=== PATIENT | male | born 1975 | race Caucasian/White ===

== ENCOUNTER 2016-07-27 19:41 | Emergency (ER) | payer MEDICARE, MEDICAID ==
[2016-07-27] MEDS ORDERED: Aspirin Low Dose CHEW TAB* 81 MG PO ONE (20:15)
[2016-07-27 20:32] LABS: Hematocrit 46 % (42-52); Hemoglobin 15.6 g/dl (14.0-18.0); Mean Corpuscular HGB Conc 34 g/dl (31-36); Mean Corpuscular Hemoglobin 28 pg (27-31); Mean Corpuscular Volume 82 fL (80-94); Mean Platelet Volume 8 um3 (7.4-10.4); Red Blood Count 5.64 10^6/ul (4.0-5.4); Red Cell Distribution Width 14 % (10.5-15); White Blood Count 8.8 10^3/ul (3.5-10.8)
[2016-07-27 20:44] LABS: Albumin 4.2 g/dL (3.2-5.2); BUN/Creatinine Ratio 13.3 (8-20); Calcium 9.5 mg/dL (8.6-10.3); EGFR African American 149.1 (>60); EGFR Non-African American 115.9 (>60); Potassium 3.9 mmol/L (3.5-5.0); Total Bilirubin 0.4 mg/dL (0.2-1.0); Total Protein 7.2 g/dL (6.4-8.9)
--- NOTE | 2016-07-27 20:49 | RAD ---
HISTORY: Right-sided back pain COMPARISONS: December 12, 2015 VIEWS: 2: Frontal dual-energy and lateral views of the chest. FINDINGS: CARDIOMEDIASTINAL SILHOUETTE: The cardiomediastinal silhouette is normal. SHEREE: The sheree are normal. PLEURA: The costophrenic angles are sharp. No pleural abnormalities are noted. LUNG PARENCHYMA: The lung volumes are low. The lungs are clear. ABDOMEN: The upper abdomen is clear. There is no subphrenic gas. BONES AND SOFT TISSUES: No bone or soft tissue abnormalities are noted. OTHER: None. IMPRESSION: LOW LUNG VOLUMES. NO ACTIVE CARDIOPULMONARY DISEASE.
[2016-07-27] MEDS: Ketorolac INJ* 30 MG/ML 1 ML VIAL IV ONE ×2 (21:11→23:12)
[2016-07-27] MEDS ORDERED: HYDROcodone/ACETAMIN 5-325 MG* 1 TAB PO ONE (21:36)
[2016-07-28] MEDS ORDERED: Ibuprofen TAB* 200 MG PO ONE (00:04)
[2016-07-28] MEDS ORDERED: Ibuprofen TAB* 600 MG ONE (00:06)
[2016-07-28 00:34] VITALS: BP 133/71
--- NOTE | 2016-07-31 12:34 | ED ---
Dana Gonzalez Matthew, scribed for Jeevan Montaño MD on 07/27/16 at 2019 . HPI Chest Pain - HPI Summary HPI Summary: A 41 y/o male presents to the ED by private car with sudden chest pain since 2 hours ago. The pain is rated 8/10 in severity and described as sharp. The pain started as right flank and right para spinal lower back pain, which has radiated into his chest. The pain is unaffected by movement and deep breaths. The pain started while the patient was sitting watching TV. Associated symptoms include SOB. The patient has had these symptoms before, which improved after fluids and NTG. He also states that he recently had a CT of his right kidney, because of a kidney mass. - History of Current Complaint Chief Complaint: EDChestPainROMI Time Seen by Provider: 07/27/16 19:51 Hx Obtained From: Patient Onset/Duration: Started Hours Ago, Atraumatic, Still Present Time of Onset: 18:00 Timing: Constant Initial Severity: Moderate Current Severity: Moderate Pain Intensity: 8 Pain Scale Used: 0-10 Numeric Character: Sharp/Stabbing Aggravating Factor(s): Nothing Alleviating Factor(s): Nothing Associated Signs and Symptoms: Positive: Chest Pain, Shortness of Breath, Back Pain - Right para spinal, Other: - Right Flank Pain - Additional Pertinent History Primary Care Physician: KARLA - Allergy/Home Medications Allergies/Adverse Reactions: Allergies Allergy/AdvReac Type Severity Reaction Status Date / Time No Known Allergies Allergy Verified 07/25/16 13:29 PMH/Surg Hx/FS Hx/Imm Hx Endocrine/Hematology History: Denies: Hx Diabetes, Hx Thyroid Disease Cardiovascular History: Denies: Hx Hypertension, Hx Pacemaker/ICD Respiratory History: Denies: Hx Asthma, Hx Chronic Obstructive Pulmonary Disease (COPD) GI History: Reports: Hx Gall Bladder Disease - removed "a couple of years ago Denies: Hx Ulcer History: Denies: Hx Renal Disease Musculoskeletal History: Reports: Hx Scoliosis Neurological History: Denies: Hx Dementia, Hx Seizures Psychiatric History: Reports: Hx Anxiety, Hx Attention Deficit Hyperactivity Disorder, Hx Depression, Hx Post Traumatic Stress Disorder, Hx Inpatient Treatment, Hx Community Mental Health Tx, Hx Bipolar Disorder, Hx of Violent Episodes Against Others, Other Psychiatric Issues/Disorders Denies: Hx Eating Disorder, Hx Panic Disorder, Hx Schizophrenia, Hx Suicide Attempt, Hx Substance Abuse - Surgical History Surgery Procedure, Year, and Place: CHOLECYSTECTOMY. T & A Infectious Disease History: No Infectious Disease History: Denies: Hx Clostridium Difficile, Hx Hepatitis, Hx Human Immunodeficiency Virus (HIV), Hx of Known/Suspected MRSA, Hx Shingles, Hx Tuberculosis, Hx Known/ Suspected VRE, Hx Known/Suspected VRSA, Traveled Outside the [place] in Last 30 Days - Family History Known Family History: Positive: Cardiac Disease - Social History Alcohol Use: None Alcohol Amount: once per year Hx Substance Use: No Substance Use Type: Reports: None Hx Tobacco Use: Yes Smoking Status (MU): Former Smoker Type: Cigarettes Have You Smoked in the Last Year: No Review of Systems Constitutional: Negative Eyes: Negative ENT: Negative Positive: Chest Pain Positive: Shortness Of Breath Positive: Abdominal Pain - right flank pain Genitourinary: Negative Positive: Myalgia - right para spinal back pain Skin: Negative Neurological: Negative Psychological: Normal All Other Systems Reviewed And Are Negative: Yes Physical Exam Triage Information Reviewed: Yes Vital Signs On Initial Exam: Initial Vitals Temp Pulse Resp BP Pulse Ox 98.4 F 84 16 148/82 97 07/27/16 19:44 07/27/16 19:44 07/27/16 19:44 07/27/16 19:44 07/27/16 19:44 Vital Signs Reviewed: Yes Appearance: Positive: Well-Appearing, No Pain Distress, Obese Skin: Positive: Warm, Skin Color Reflects Adequate Perfusion, Dry Head/Face: Positive: Normal Head/Face Inspection Eyes: Positive: Normal ENT: Positive: Normal ENT inspection Neck: Positive: Supple, Nontender Respiratory/Lung Sounds: Positive: Clear to Auscultation, Breath Sounds Present Cardiovascular: Positive: RRR Abdomen Description: Positive: Nontender, Soft Bowel Sounds: Positive: Present Musculoskeletal: Positive: Other - right lumbar para spinal tenderness Neurological: Positive: Normal, Alert, Oriented to Person Place, Time Psychiatric: Positive: Normal, Affect/Mood Appropriate Diagnostics - Vital Signs Vital Signs Temp Pulse Resp BP Pulse Ox 07/27/16 19:44 98.4 F 84 16 148/82 97 - Laboratory Lab Results: Lab Results 07/27/16 07/27/16 07/27/16 Range/Units 20:00 20:00 20:00 WBC 8.8 (3.5-10.8) 10^3/ul RBC 5.64 H (4.0-5.4) 10^6/ul Hgb 15.6 (14.0-18.0) g/dl Hct 46 (42-52) % MCV 82 (80-94) fL MCH 28 (27-31) pg MCHC 34 (31-36) g/dl RDW 14 (10.5-15) % Plt Count 233 (150-450) 10^3/ul MPV 8 (7.4-10.4) um3 Neut % (Auto) 54.4 (38-83) % Lymph % (Auto) 34.0 (25-47) % [place] % (Auto) 9.8 H (1-9) % Eos % (Auto) 1.2 (0-6) % Baso % (Auto) 0.6 (0-2) % Absolute Neuts (auto) 4.8 (1.5-7.7) 10^3/ul Absolute Lymphs (auto) 3.0 (1.0-4.8) 10^3/ul Absolute Monos (auto) 0.9 H (0-0.8) 10^3/ul Absolute Eos (auto) 0.1 (0-0.6) 10^3/ul Absolute Basos (auto) 0.1 (0-0.2) 10^3/ul Absolute Nucleated RBC 0.02 10^3/ul Nucleated RBC % 0.2 D-Dimer, Quantitative < 200 (Less Than 230) ng/mL Sodium 129 L (133-145) mmol/L Potassium 3.9 (3.5-5.0) mmol/L Chloride 111 (101-111) mmol/L Carbon Dioxide 27 (22-32) mmol/L Anion Gap -9 L (2-11) mmol/L BUN 10 (6-24) mg/dL Creatinine 0.75 (0.67-1.17) mg/dL Est GFR ( Amer) 149.1 (>60) Est GFR (Non-Af Amer) 115.9 (>60) BUN/Creatinine Ratio 13.3 (8-20) Glucose 122 H (70-100) mg/dL Lactic Acid (0.5-2.0) mmol/L Calcium 9.5 (8.6-10.3) mg/dL Total Bilirubin 0.40 (0.2-1.0) mg/dL AST 24 (13-39) U/L ALT 37 (7-52) U/L Alkaline Phosphatase 55 (34-104) U/L Troponin I 0.00 (<0.04) ng/mL Total Protein 7.2 (6.4-8.9) g/dL Albumin 4.2 (3.2-5.2) g/dL Globulin 3.0 (2-4) g/dL Albumin/Globulin Ratio 1.4 (1-3) 07/27/16 Range/Units 20:00 WBC (3.5-10.8) 10^3/ul RBC (4.0-5.4) 10^6/ul Hgb (14.0-18.0) g/dl Hct (42-52) % MCV (80-94) fL MCH (27-31) pg MCHC (31-36) g/dl RDW (10.5-15) % Plt Count (150-450) 10^3/ul MPV (7.4-10.4) um3 Neut % (Auto) (38-83) % Lymph % (Auto) (25-47) % [place] % (Auto) (1-9) % Eos % (Auto) (0-6) % Baso % (Auto) (0-2) % Absolute Neuts (auto) (1.5-7.7) 10^3/ul Absolute Lymphs (auto) (1.0-4.8) 10^3/ul Absolute Monos (auto) (0-0.8) 10^3/ul Absolute Eos (auto) (0-0.6) 10^3/ul Absolute Basos (auto) (0-0.2) 10^3/ul Absolute Nucleated RBC 10^3/ul Nucleated RBC % D-Dimer, Quantitative (Less Than 230) ng/mL Sodium (133-145) mmol/L Potassium (3.5-5.0) mmol/L Chloride (101-111) mmol/L Carbon Dioxide (22-32) mmol/L Anion Gap (2-11) mmol/L BUN (6-24) mg/dL Creatinine (0.67-1.17) mg/dL Est GFR ( Amer) (>60) Est GFR (Non-Af Amer) (>60) BUN/Creatinine Ratio (8-20) Glucose (70-100) mg/dL Lactic Acid 1.4 (0.5-2.0) mmol/L Calcium (8.6-10.3) mg/dL Total Bilirubin (0.2-1.0) mg/dL AST (13-39) U/L ALT (7-52) U/L Alkaline Phosphatase (34-104) U/L Troponin I (<0.04) ng/mL Total Protein (6.4-8.9) g/dL Albumin (3.2-5.2) g/dL Globulin (2-4) g/dL Albumin/Globulin Ratio (1-3) Result Diagrams: 07/27/16 20:00 07/27/16 20:00 Lab Statement: Any lab studies that have been ordered have been reviewed, and results considered in the medical decision making process. - Radiology CXR Xray Interpretation: No Acute Changes - IMPRESSION: LOW LUNG VOLUMES. NO ACTIVE CARDIOPULMONARY DISEASE. Radiology Interpretation Completed By: Radiologist - EKG 19:52 Cardiac Rate: NL - 80 bpm EKG Rhythm: Sinus Rhythm EKG Interpretation: Baseline [facility] Chest Pain Course/Dx - Course Assessment/Plan: A 41 y/o male presents to the ED by private car with chest pain since 18:00. EKG shows NSR at 80 bpm. CXR shows no active cardiopulmonary disease. Labs were reviewed and troponin was 0.00. The patient will be discharged home and follow-up with his PCP for further management. - Diagnoses Provider Diagnoses: Chest pain Discharge - Discharge Plan Condition: Stable Disposition: HOME Patient Education Materials: Chest Pain (ED) Referrals: Karla Patterson MD [Primary Care Provider] - 2 Days Additional Instructions: Please follow-up with your primary care physician in two days. The documentation as recorded by the Dana rincon Matthew accurately reflects the service I personally performed and the decisions made by , Jeevan Montaño MD.
== END 2016-07-28 00:40 | disposition home or self-care (01) ==
LOC: ED 19:41
DX: R07.9 Chest pain, unspecified (principal); Z87.891 Personal history of nicotine dependence
CPT/HCPCS: 36415; 71020; 80053; 83605; 84484; 85025; 85379; 93005; 99283; A9270-GY; J1885

== ENCOUNTER 2016-08-24 19:31 | Emergency (ER) | payer MEDICARE, MEDICAID ==
[2016-08-24 19:57] VITALS: BP 155/83
== END 2016-08-24 20:32 | disposition left against medical advice (07) ==
LOC: ED 19:31
DX: R10.84 Generalized abdominal pain (principal); Z53.21 Procedure and treatment not carried out due to patient leaving prior to being seen by health care provider
CPT/HCPCS: 99281

== ENCOUNTER 2016-12-06 20:19 | Emergency (ER) | payer MEDICARE, MEDICAID ==
--- NOTE | 2016-12-06 21:57 | RAD ---
Indication: Chest pain, shortness of breath, pneumonia, CHF. 2 views of the chest including dual energy PA views demonstrates elevated right hemidiaphragm. Lung herrera demonstrate no pleural fluid, pneumonia or pneumothorax. IMPRESSION: No active cardiopulmonary disease is noted.
[2016-12-06 22:26] VITALS: BP 148/96
--- NOTE | 2016-12-06 23:16 | ED ---
HPI Chest Pain - History of Current Complaint Chief Complaint: EDChestPainROMI Time Seen by Provider: 12/06/16 21:13 Pain Intensity: 2 Pain Scale Used: 0-10 Numeric - Additional Pertinent History Primary Care Physician: KARLA - Allergy/Home Medications Allergies/Adverse Reactions: Allergies Allergy/AdvReac Type Severity Reaction Status Date / Time No Known Allergies Allergy Verified 07/25/16 13:29 PMH/Surg Hx/FS Hx/Imm Hx Endocrine/Hematology History: Denies: Hx Diabetes, Hx Thyroid Disease Cardiovascular History: Denies: Hx Hypertension, Hx Pacemaker/ICD Respiratory History: Denies: Hx Asthma, Hx Chronic Obstructive Pulmonary Disease (COPD) GI History: Reports: Hx Gall Bladder Disease - removed "a couple of years ago Denies: Hx Ulcer History: Denies: Hx Renal Disease Musculoskeletal History: Reports: Hx Scoliosis Neurological History: Denies: Hx Dementia, Hx Seizures Psychiatric History: Reports: Hx Anxiety, Hx Attention Deficit Hyperactivity Disorder, Hx Depression, Hx Post Traumatic Stress Disorder, Hx Inpatient Treatment, Hx Community Mental Health Tx, Hx Bipolar Disorder, Hx of Violent Episodes Against Others, Other Psychiatric Issues/Disorders Denies: Hx Eating Disorder, Hx Panic Disorder, Hx Schizophrenia, Hx Suicide Attempt, Hx Substance Abuse - Surgical History Surgery Procedure, Year, and Place: CHOLECYSTECTOMY. T & A Infectious Disease History: No Infectious Disease History: Denies: Hx Clostridium Difficile, Hx Hepatitis, Hx Human Immunodeficiency Virus (HIV), Hx of Known/Suspected MRSA, Hx Shingles, Hx Tuberculosis, Hx Known/ Suspected VRE, Hx Known/Suspected VRSA, Traveled Outside the [place] in Last 30 Days - Family History Known Family History: Positive: Cardiac Disease - Social History Alcohol Use: None Alcohol Amount: once per year Hx Substance Use: No Substance Use Type: Reports: None Hx Tobacco Use: Yes Smoking Status (MU): Former Smoker Type: Cigarettes Have You Smoked in the Last Year: No Physical Exam Vital Signs On Initial Exam: Initial Vitals BP 134/95 12/06/16 20:40 - [place] Coma Scale Coma Scale Total: 15 Diagnostics - Vital Signs Vital Signs Temp Pulse Resp BP Pulse Ox 12/06/16 22:25 97 F 73 16 148/96 12/06/16 22:24 77 23 148/96 96 12/06/16 22:00 86 21 95 12/06/16 21:00 88 21 133/84 96 12/06/16 20:41 98.6 F 77 12 134/95 96 12/06/16 20:40 134/95 - Laboratory Lab Statement: Any lab studies that have been ordered have been reviewed, and results considered in the medical decision making process. Discharge - Discharge Plan Condition: Stable Disposition: AGAINST MEDICAL ADVICE Patient Education Materials: Chest Pain (ED) Referrals: Karla Patterson MD [Primary Care Provider] - Additional Instructions: Return to the emergency department if symptoms worsen.
== END 2016-12-06 22:26 | disposition left against medical advice (07) ==
LOC: ED 20:19
DX: R07.9 Chest pain, unspecified (principal); Z87.891 Personal history of nicotine dependence; Z53.21 Procedure and treatment not carried out due to patient leaving prior to being seen by health care provider
CPT/HCPCS: 71020; 93005; 99282

== ENCOUNTER 2016-12-29 18:05 | Emergency (ER) | payer MEDICARE, MEDICAID ==
[2016-12-29 18:08] VITALS: BP 144/92
[2016-12-29] MEDS ORDERED: Albuterol 2.5 MG/3 ML NEB.SOL* (0.083%) INH ONE (18:31)
[2016-12-29] MEDS ORDERED: Azithromycin TAB* 250 MG PO ONE (18:32)
--- NOTE | 2016-12-29 18:36 | UC ---
Respiratory Complaint HPI - HPI Summary HPI Summary: 3 days of worsening cough and nasal congestion thick green sputum - History of Current Complaint Chief Complaint: UCRespiratory Stated Complaint: COUGH Time Seen by Provider: 12/29/16 18:24 Hx Obtained From: Patient Onset/Duration: Sudden Onset, Lasting Days - 3, Still Present, Worse Since - daily Timing: Constant Severity Initially: Moderate Severity Currently: Moderate Pain Intensity: 7 Pain Scale Used: 0-10 Numeric Character: Sputum Description: - thick green Aggravating Factors: Exertion Alleviating Factors: Nothing Associated Signs And Symptoms: Positive: Fever, Chills, Pleuritic Chest Pain, URI, Nasal Congestion - Allergies/Home Medications Allergies/Adverse Reactions: Allergies Allergy/AdvReac Type Severity Reaction Status Date / Time No Known Allergies Allergy Verified 12/29/16 18:07 PMH/Surg Hx/FS Hx/Imm Hx Previously Healthy: No Respiratory History: Bronchitis, Pneumonia Psychological History: Bipolar Disorder - Surgical History Surgical History: Yes Surgery Procedure, Year, and Place: CHOLECYSTECTOMY. T & A - Family History Known Family History: Positive: Cardiac Disease - Social History Occupation: Disabled Lives: With Family Alcohol Use: None Alcohol Amount: once per year Substance Use Type: None Smoking Status (MU): Former Smoker Type: Cigarettes Have You Smoked in the Last Year: No - Immunization History Most Recent Influenza Vaccination: "ask rui" Most Recent Tetanus Shot: "i don't know. ask rui" Most Recent Pneumonia Vaccination: never Review of Systems Constitutional: Chills, Fatigue Skin: Negative Eyes: Negative ENT: Sore Throat, Nasal Discharge Respiratory: Cough Cardiovascular: Negative Gastrointestinal: Negative Genitourinary: Negative Motor: Negative Neurovascular: Negative Musculoskeletal: Negative Neurological: Negative Psychological: Negative All Other Systems Reviewed And Are Negative: Yes Physical Exam Triage Information Reviewed: Yes Appearance: Well-Appearing, No Pain Distress, Obese Vital Signs: Initial Vital Signs Temp 98.7 F 12/29/16 18:06 Pulse 93 12/29/16 18:06 Resp 20 12/29/16 18:06 BP 144/92 12/29/16 18:06 Pulse Ox 98 12/29/16 18:06 Vital Signs Reviewed: Yes Eye Exam: Normal Eyes: Positive: Conjunctiva Clear ENT Exam: Normal ENT: Positive: Normal ENT inspection, Hearing grossly normal, Pharynx normal, Nasal congestion, Nasal drainage, TMs normal. Negative: Tonsillar swelling, Tonsillar exudate, Trismus, Muffled/hoarse voice Dental Exam: Normal Neck exam: Normal Neck: Positive: Supple, Nontender, No Lymphadenopathy Respiratory Exam: Normal Respiratory: Positive: Chest non-tender, Lungs clear, No respiratory distress, No accessory muscle use, Decreased breath sounds - increase airation after neb Cardiovascular Exam: Normal Cardiovascular: Positive: RRR, No Murmur, Pulses Normal, Brisk Capillary Refill Musculoskeletal Exam: Normal Musculoskeletal: Positive: Strength Intact, ROM Intact, No Edema Neurological Exam: Normal Neurological: Positive: Alert, Muscle Tone Normal Psychological Exam: Normal Skin Exam: Normal Diagnostic Evaluation - Laboratory O2 Sat by Pulse Oximetry: 98 Re-Evaluation - Re-Evaluation First Eval Change: Improved - feels better with increase air movement Respiratory Course/Dx - Course Course Of Treatment: albuterol, flonase, increase fluids, zithromax, follow Blood pressure with pcp - Differential Dx/Diagnosis Differential Diagnosis/HQI/PQRI: Asthma, Bronchitis, Influenza, Laryngitis, Sinusitis Provider Diagnoses: Bronchitis, nasal congestion Discharge - Discharge Plan Condition: Stable Disposition: HOME Prescriptions: Azithromycin TAB* [Zithromax TAB (Z-OUMAR) 250 mg #6 tabs] 1 tab PO DAILY #4 tab Fluticasone NASAL SPRAY 50MCG* [Flonase NASAL SPRAY 50MCG*] 2 spray BOTH NARES DAILY #1 btl Patient Education Materials: Albuterol (By breathing), How to Use Nasal [place] ( ED), How to Use a Metered-Dose Inhaler and a Spacer (ED), Acute Bronchitis (ED) , DASH Eating Plan (ED), Hypertension (ED) Referrals: Karla Patterson MD [Primary Care Provider] - 2 Weeks
[2016-12-29] MEDS ORDERED: Albuterol HFA INHALER* 8 gm MDI INH ONE (18:44)
== END 2016-12-29 19:10 | disposition home or self-care (01) ==
LOC: UCEAST 18:05
DX: J40 Bronchitis, not specified as acute or chronic (principal); R09.81 Nasal congestion; F31.9 Bipolar disorder, unspecified
CPT/HCPCS: 99203; A9270-GY; G0463

== ENCOUNTER 2017-06-05 14:39 | Emergency (ER) | payer MEDICARE, MEDICAID ==
[2017-06-05] MEDS ORDERED: Metoclopramide IV* 5 MG/ML 2 ML VIAL IV ONE (15:05)
[2017-06-05] MEDS ORDERED: diPHENhydraMINE IV* 50 MG in NS 0.9% 50 ML* 50 ML IVPB ONE (15:05)
[2017-06-05] MEDS ORDERED: Ketorolac INJ* 30 MG/ML 1 ML VIAL IV PUSH ONE (15:05)
[2017-06-05] MEDS ORDERED: NS 0.9% 1000 ML* 1,000 ML IV ONE (15:06)
[2017-06-05 15:27] LABS: Hematocrit 44 % (42-52); Hemoglobin 14.7 g/dl (14.0-18.0); Mean Corpuscular HGB Conc 34 g/dl (31-36); Mean Corpuscular Hemoglobin 28 pg (27-31); Mean Corpuscular Volume 83 fL (80-94); Mean Platelet Volume 8 um3 (7.4-10.4); Red Blood Count 5.26 10^6/ul (4.0-5.4); Red Cell Distribution Width 15 % (10.5-15)
--- NOTE | 2017-06-05 15:40 | RAD ---
CLINICAL HISTORY: Right flank pain COMPARISON: July 25, 2016 TECHNIQUE: Multiple contiguous axial CT scans were obtained of the abdomen and pelvis, without intravenous contrast enhancement. Coronal and sagittal multiplanar reformations are submitted for review. Oral contrast was not administered. FINDINGS: The study is limited by the lack of intravenous contrast. This limits evaluation of the solid organs and vasculature. LUNG BASES: The lung bases are clear. LIVER: The liver is diffusely low in attenuation compared to the spleen. There are no focal hepatic parenchymal masses. BILE DUCTS: There is no intrahepatic or extrahepatic biliary dilatation. GALLBLADDER: The gallbladder is not visualized. Surgical clips are noted in the gallbladder fossa. PANCREAS: The pancreas is normal, without mass or ductal dilatation. SPLEEN: Normal in size and appearance. UPPER GI TRACT: Evaluation of the gastrointestinal tract is limited by incomplete gastric distention. The upper GI tract is unremarkable. SMALL BOWEL AND MESENTERY: The small bowel is normal in contour, course, and caliber. There is no obstruction or dilatation. COLON: The colon is normal in contour, course, caliber. There is no pericolonic inflammatory change. ADRENALS: Normal bilaterally. KIDNEYS: There is minimal dystrophic calcification of the anterior right kidney, stable. There is a punctate obstructing left renal calyceal stone. There is no hydronephrosis. BLADDER: The bladder is collapsed and is not well evaluated. PELVIC ORGANS: The prostate gland is normal. The seminal vesicles are symmetric. AORTA: The aorta is normal. IVC: Unremarkable LYMPH NODES: There is no lymphadenopathy by size criteria. ABDOMINAL WALL: There is no evidence for abdominal wall hernia. BONES AND SOFT TISSUES: Unremarkable OTHER: None IMPRESSION: 1. PUNCTATE NONOBSTRUCTING LEFT RENAL CALYCEAL STONE. 2. FATTY INFILTRATION OF LIVER.
[2017-06-05 15:54] LABS: Albumin 3.9 g/dL (3.2-5.2); BUN/Creatinine Ratio 15.6 (8-20); C Reactive Protein 5.67 mg/L (< 5.00); Calcium 8.9 mg/dL (8.6-10.3); EGFR African American 178.1 (>60); EGFR Non-African American 138.5 (>60); Globulin 2.8 g/dL (2-4); Potassium 3.7 mmol/L (3.5-5.0); Total Bilirubin 0.5 mg/dL (0.2-1.0); Total Protein 6.7 g/dL (6.4-8.9)
[2017-06-05 17:57] VITALS: BP 133/67
--- NOTE | 2017-06-05 19:00 | ED ---
Shalom Gonzalez Angela, scribed for Nixon Ramos MD on 06/05/17 at 1501 . Complex/Multi-Sys Presentation - HPI Summary HPI Summary: This pt is a 42 y/o male presenting to [facility] c/o cough and abd pain for the last 2 weeks. Pt additionally c/o nausea, vomiting, and headache. Pt notes that his headache was the worse yesterday and he took naproxen yesterday for the pain with some relief. He states his abd pain is more located on the right side , around his kidney. - History Of Current Complaint Chief Complaint: EDNauseaVomitDiarrh Time Seen by Provider: 06/05/17 14:51 Hx Obtained From: Patient Onset/Duration: Lasting Days, Still Present Timing: Days Location: Pain At: - abd and head Associated Signs And Symptoms: Positive: Headache, Cough, Nausea, Vomiting, Abdominal Pain - Allergies/Home Medications Allergies/Adverse Reactions: Allergies Allergy/AdvReac Type Severity Reaction Status Date / Time No Known Allergies Allergy Verified 12/29/16 18:07 PMH/Surg Hx/FS Hx/Imm Hx Endocrine/Hematology History: Denies: Hx Diabetes, Hx Thyroid Disease Cardiovascular History: Denies: Hx Hypertension, Hx Pacemaker/ICD Respiratory History: Denies: Hx Asthma, Hx Chronic Obstructive Pulmonary Disease (COPD) GI History: Reports: Hx Gall Bladder Disease - removed "a couple of years ago Denies: Hx Ulcer History: Denies: Hx Renal Disease Musculoskeletal History: Reports: Hx Scoliosis, Other Musculoskeletal History - obesity Neurological History: Denies: Hx Dementia, Hx Seizures Psychiatric History: Reports: Hx Anxiety, Hx Attention Deficit Hyperactivity Disorder, Hx Depression, Hx Post Traumatic Stress Disorder, Hx Inpatient Treatment, Hx Community Mental Health Tx, Hx Bipolar Disorder, Hx of Violent Episodes Against Others, Other Psychiatric Issues/Disorders Denies: Hx Eating Disorder, Hx Panic Disorder, Hx Schizophrenia, Hx Suicide Attempt, Hx Substance Abuse - Surgical History Surgery Procedure, Year, and Place: CHOLECYSTECTOMY. T & A Infectious Disease History: No Infectious Disease History: Denies: Hx Clostridium Difficile, Hx Hepatitis, Hx Human Immunodeficiency Virus (HIV), Hx of Known/Suspected MRSA, Hx Shingles, Hx Tuberculosis, Hx Known/ Suspected VRE, Hx Known/Suspected VRSA, Traveled Outside the [place] in Last 30 Days - Family History Known Family History: Positive: Cardiac Disease - Social History Alcohol Use: None Alcohol Amount: once per year Hx Substance Use: No Substance Use Type: Reports: None Hx Tobacco Use: Yes Smoking Status (MU): Former Smoker Type: Cigarettes Have You Smoked in the Last Year: No Review of Systems Negative: Fever, Chills Eyes: Negative ENT: Negative Positive: Cough Positive: Abdominal Pain, Vomiting, Nausea Positive: Headache All Other Systems Reviewed And Are Negative: Yes Physical Exam - Summary Physical Exam Summary: VITAL SIGNS: Reviewed. GENERAL: Patient is an obese male who is lying comfortable in the stretcher. Patient is not in any acute respiratory distress. HEAD AND FACE: No signs of trauma. No ecchymosis, hematomas or skull depressions. No sinus tenderness. EYES: PERRLA, EOMI x 2, No injected conjunctiva, no nystagmus. EARS: Hearing grossly intact. Ear canals and tympanic membranes are within normal limits. MOUTH: Oropharynx within normal limits. NECK: Supple, trachea is midline, no adenopathy, no JVD, no carotid bruit, no c- spine tenderness, neck with full ROM. CHEST: Symmetric, no tenderness at palpation LUNGS: Clear to auscultation bilaterally. No wheezing or crackles. CVS: Regular rate and rhythm, S1 and S2 present, no murmurs or gallops appreciated. ABDOMEN: Soft, non-tender. No signs of distention. No rebound no guarding, and no masses palpated. Bowel sounds are normal. Pt has right flank tenderness. EXTREMITIES: FROM in all major joints, no edema, no cyanosis or clubbing. NEURO: Alert and oriented x 3. No acute neurological deficits. Speech is normal and follows commands. SKIN: Dry and warm Triage Information Reviewed: Yes Vital Signs On Initial Exam: Initial Vitals Temp Pulse Resp BP Pulse Ox 98.1 F 77 20 157/72 96 06/05/17 14:41 06/05/17 14:41 06/05/17 14:41 06/05/17 14:41 06/05/17 14:41 Vital Signs Reviewed: Yes - Lawson Coma Scale Coma Scale Total: 15 Diagnostics - Vital Signs Vital Signs Temp Pulse Resp BP Pulse Ox 06/05/17 14:41 98.1 F 77 20 157/72 96 - Laboratory Result Diagrams: 06/05/17 15:15 06/05/17 15:15 Lab Statement: Any lab studies that have been ordered have been reviewed, and results considered in the medical decision making process. - CT CT abdomen/pelvis CT Interpretation: Positive (See Comments) - IMPRESSION: 1. Punctate nonobstructing left renal calyceal stone. 2. Fatty infiltration of liver. ED physician has reviewed this radiology report and agrees. CT Interpretation Completed By: Radiologist Re-Evaluation - Re-Evaluation First Eval Re-Evaluation Time: 17:50 Comment: I reviewed the CT results with the pt. Complex Multi-Symp Course/Dx Assessment/Plan: This pt is a 42 y/o male presenting to [facility] c/o cough and abd pain for the last 2 weeks. Pt additionally c/o nausea, vomiting, and headache. Pt notes that his headache was the worse yesterday and he took naproxen yesterday for the pain with some relief. He states his abd pain is more located on the right side, around his kidney. Test results without any significant abnormalities. Abdomen/pelvis CT shows 1. Punctate nonobstructing left renal calyceal stone. 2. Fatty infiltration of liver. In the ED course the pt was given IV fluids for hydration and Toradol for the pain. After these medications , symptoms have resolved. Since the pt is asymptomatic and there are no abnormalities in the labs or imaging, the pt will be discharged home with follow up from his PCP. Pt is hemodynamically stable, alert and oriented x3. - Diagnoses Provider Diagnoses: Right flank pain Discharge - Discharge Plan Condition: Stable Disposition: HOME Patient Education Materials: Flank Pain (ED) Referrals: Karla Patterson MD [Primary Care Provider] - Additional Instructions: Please follow up with your primary care provider. RETURN TO THE ED FOR ANY WORSENING SYMPTOMS. The documentation as recorded by the Shalom rincon Angela accurately reflects the service I personally performed and the decisions made by me, Nixon Ramos MD.
== END 2017-06-05 17:56 | disposition home or self-care (01) ==
LOC: ED 14:39
DX: R10.84 Generalized abdominal pain (principal); R51 Headache; R05 Cough; R11.2 Nausea with vomiting, unspecified; Z87.891 Personal history of nicotine dependence
CPT/HCPCS: 36415; 74176; 80053; 83690; 85025; 86140; 96374; 96375; 99283; J1200; J1885; J2765

== ENCOUNTER 2017-07-27 09:58 | Emergency (ER) | payer MEDICARE, MEDICAID ==
[2017-07-27 10:15] VITALS: BP 127/74
--- NOTE | 2017-07-27 10:34 | UC ---
Respiratory Complaint HPI - HPI Summary HPI Summary: 42 yo male with cough x 3-4 weeks now wheezing and having a productive cough no f/c no CP or SOB - History of Current Complaint Chief Complaint: UCRespiratory Stated Complaint: COUGH CONGESTION Time Seen by Provider: 07/27/17 10:17 Hx Obtained From: Patient Onset/Duration: Gradual Onset, Lasting Weeks Timing: Constant Severity Initially: Mild Severity Currently: Moderate Pain Intensity: 4 Pain Scale Used: 0-10 Numeric Character: Cough: Productive Aggravating Factors: Nothing Alleviating Factors: Nothing Associated Signs And Symptoms: Positive: Wheezing Related History: Similar Episode/Dx as: - bronchitis - Allergies/Home Medications Allergies/Adverse Reactions: Allergies Allergy/AdvReac Type Severity Reaction Status Date / Time No Known Allergies Allergy Verified 07/27/17 10:09 PMH/Surg Hx/FS Hx/Imm Hx Previously Healthy: Yes Respiratory History: Asthma, Bronchitis Psychological History: Anxiety, Depression - Surgical History Surgical History: Yes Surgery Procedure, Year, and Place: CHOLECYSTECTOMY. T & A - Family History Known Family History: Positive: Cardiac Disease, Hypertension, Diabetes - Social History Alcohol Use: None Alcohol Amount: once per year Substance Use Type: None Smoking Status (MU): Former Smoker Type: Cigarettes Have You Smoked in the Last Year: No - Immunization History Most Recent Influenza Vaccination: "ask rui" Most Recent Tetanus Shot: "i don't know. ask rui" Most Recent Pneumonia Vaccination: never Review of Systems Constitutional: Negative Skin: Negative Eyes: Negative ENT: Negative Respiratory: Cough Cardiovascular: Negative Gastrointestinal: Negative Genitourinary: Negative Motor: Negative Neurovascular: Negative Musculoskeletal: Negative Neurological: Negative Psychological: Negative Is Patient Immunocompromised?: No All Other Systems Reviewed And Are Negative: Yes Physical Exam Triage Information Reviewed: Yes Appearance: Well-Appearing, No Pain Distress, Well-Nourished Vital Signs: Initial Vital Signs Temp 98 F 07/27/17 10:11 Pulse 102 07/27/17 10:11 Resp 18 07/27/17 10:11 BP 127/74 07/27/17 10:11 Pulse Ox 100 07/27/17 10:11 Vital Signs Reviewed: Yes Eyes: Positive: Conjunctiva Clear ENT: Positive: Hearing grossly normal, Pharynx normal, TMs normal, Uvula midline. Negative: Nasal congestion, Nasal drainage, TM dull, TM red, Tonsillar swelling, Tonsillar exudate, Trismus, Muffled voice, Hoarse voice, Dental tenderness, Sinus tenderness Neck: Positive: Supple, Nontender, No Lymphadenopathy Respiratory: Positive: Lungs clear, Normal breath sounds, No respiratory distress, Wheezing - with forced expiration only Cardiovascular: Positive: RRR, No Murmur Musculoskeletal: Positive: ROM Intact, No Edema Neurological: Positive: Alert Psychological Exam: Normal Skin Exam: Normal UC Diagnostic Evaluation - Laboratory O2 Sat by Pulse Oximetry: 100 - normal/not hypoxic Respiratory Course/Dx - Differential Dx/Diagnosis Provider Diagnoses: acute bronchitis Discharge - Discharge Plan Condition: Stable Disposition: HOME Prescriptions: Albuterol HFA INHALER* [Ventolin HFA Inhaler*] 2 puff INH QID #1 mdi Amoxicillin PO (*) [Amoxicillin 875 MG (*)] 875 mg PO BID #14 tab Patient Education Materials: Acute Bronchitis (ED) Referrals: Karla Patterson MD [Primary Care Provider] - 5 Days (IF NOT BETTER) Additional Instructions: return for new or worsening symptoms
== END 2017-07-27 10:35 | disposition home or self-care (01) ==
LOC: UCEAST 09:58
DX: J20.9 Acute bronchitis, unspecified (principal); J45.909 Unspecified asthma, uncomplicated; F41.9 Anxiety disorder, unspecified; F32.9 Major depressive disorder, single episode, unspecified; Z90.49 Acquired absence of other specified parts of digestive tract; Z87.891 Personal history of nicotine dependence
CPT/HCPCS: 99212; G0463

== ENCOUNTER 2017-08-09 19:33 | Emergency (ER) | payer MEDICARE, MEDICAID ==
[2017-08-09 20:03] VITALS: BP 155/80
--- NOTE | 2017-08-09 21:13 | UC ---
Respiratory Complaint HPI - HPI Summary HPI Summary: c/o cough after cold-like symptoms for several day, denies high grade fever. States in the past he has had episodes of bronchitis. PMH of depression, reactive airway disease. - History of Current Complaint Chief Complaint: UCRespiratory Stated Complaint: cough Time Seen by Provider: 08/09/17 21:05 Hx Obtained From: Patient Onset/Duration: Gradual Onset, Lasting Days Timing: Intermittent Episodes Severity Initially: Mild Severity Currently: Moderate Character: Cough: Nonproductive Aggravating Factors: Allergens, Deep Breaths Alleviating Factors: Bronchodilator Associated Signs And Symptoms: Positive: Negative - Risk Factors Pulmonary Embolism Risk Factors: Negative Cardiac Risk Factors: Negative Pseudomonas Risk Factors: Negative Tuberculosis Risk Factors: Negative - Allergies/Home Medications Allergies/Adverse Reactions: Allergies Allergy/AdvReac Type Severity Reaction Status Date / Time No Known Allergies Allergy Verified 08/09/17 20:03 PMH/Surg Hx/FS Hx/Imm Hx Previously Healthy: Yes Respiratory History: Bronchitis Psychological History: Depression - Surgical History Surgical History: Yes Surgery Procedure, Year, and Place: CHOLECYSTECTOMY. T & A - Family History Known Family History: Positive: Cardiac Disease, Hypertension, Diabetes - Social History Alcohol Use: None Alcohol Amount: once per year Substance Use Type: None Smoking Status (MU): Former Smoker Type: Cigarettes Have You Smoked in the Last Year: No - Immunization History Most Recent Influenza Vaccination: "ask rui" Most Recent Tetanus Shot: "i don't know. ask rui" Most Recent Pneumonia Vaccination: never Review of Systems Respiratory: Cough All Other Systems Reviewed And Are Negative: Yes Physical Exam Triage Information Reviewed: Yes Appearance: Well-Appearing, Well-Nourished Vital Signs: Initial Vital Signs Temp 98.0 F 08/09/17 20:01 Pulse 84 08/09/17 20:01 Resp 18 08/09/17 20:01 BP 155/80 08/09/17 20:01 Pulse Ox 98 08/09/17 20:01 Vital Signs Reviewed: Yes ENT Exam: Normal ENT: Positive: Hearing grossly normal, Pharynx normal, TMs normal Neck exam: Normal Neck: Positive: Supple, Nontender Respiratory: Positive: Chest non-tender, No respiratory distress, No accessory muscle use, Rhonchi Cardiovascular: Positive: RRR, No Murmur, Pulses Normal, Brisk Capillary Refill UC Diagnostic Evaluation - Laboratory O2 Sat by Pulse Oximetry: 98 Respiratory Course/Dx - Course Course Of Treatment: Take flovent MDI as directed for 10 days. Continue hydration and hand hygiene - Differential Dx/Diagnosis Provider Diagnoses: acute bronchitis Discharge - Discharge Plan Condition: Stable Disposition: HOME Prescriptions: Fluticasone DISKUS 250 MCG(NF) [Flovent Diskus 250 MCG(NF)] 1 puff INH BID #1 diskus Patient Education Materials: Acute Bronchitis (ED) Referrals: Karla Patterson MD [Primary Care Provider] -
== END 2017-08-09 21:34 | disposition home or self-care (01) ==
LOC: UCEAST 19:33
DX: J20.9 Acute bronchitis, unspecified (principal); J45.909 Unspecified asthma, uncomplicated; F32.9 Major depressive disorder, single episode, unspecified; Z90.49 Acquired absence of other specified parts of digestive tract; Z87.891 Personal history of nicotine dependence
CPT/HCPCS: 99212; G0463

== ENCOUNTER 2017-08-20 20:19 | Emergency (ER) | payer MEDICARE, MEDICAID ==
[2017-08-20] MEDS ORDERED: NS 0.9% 1000 ML* 1,000 ML IV ONE (20:54)
[2017-08-20 21:25] LABS: ABS Basophils 0 10^3/ul (0-0.2); ABS Eosinophils 0.1 10^3/ul (0-0.6); ABS Lymphocytes 2.6 10^3/ul (1.0-4.8); ABS Monocytes 0.8 10^3/ul (0-0.8); ABS Neutrophils 3.4 10^3/ul (1.5-7.7); ABS Nucleated RBC 0 10^3/ul; Eosinophil % 1.4 % (0-6); Hematocrit 42 % (42-52); Hemoglobin 14.3 g/dl (14.0-18.0); Lymphocyte % 37.4 % (25-47); Mean Corpuscular HGB Conc 34 g/dl (31-36); Mean Corpuscular Hemoglobin 28 pg (27-31); Mean Corpuscular Volume 83 fL (80-94); Mean Platelet Volume 7 um3 (7.4-10.4); Nucleated Red Blood Cells % 0.1; Platelet Count 193 10^3/ul (150-450); Red Blood Count 5.06 10^6/ul (4.0-5.4); Red Cell Distribution Width 14 % (10.5-15)
--- NOTE | 2017-08-20 21:42 | RAD ---
INDICATION: Chest pain. COMPARISON: Comparison is made with a prior study from December 06, 2016. TECHNIQUE: A portable view of the chest was obtained. FINDINGS: The heart is within normal limits in size. Mediastinal contours appear normal. The lungs are underinflated. There is a small infiltrate at the right lung base. There is more focal elevation of the right hemidiaphragm which is unchanged from the prior study. IMPRESSION: UNDERINFLATION, SMALL RIGHT BASILAR INFILTRATE.
[2017-08-20 21:43] LABS: EGFR Non-African American 120.9 (>60); INR 1.01 (0.77-1.02)
[2017-08-20] MEDS ORDERED: GuaiFENesin DM* 5 ML UDC PO ONE (22:31)
[2017-08-20] MEDS ORDERED: Azithromycin TAB* 250 MG PO ONE (22:31)
--- NOTE | 2017-08-20 22:36 | ED ---
Gregg Gonzalez Thomas, scribed for Ashwin Colmenares MD on 08/20/17 at 2117 . HPI Chest Pain - HPI Summary HPI Summary: The patient is a 42 year old male presenting to the emergency department complaining of upper chest pain and right lateral lower chest pain aggravated by a productive cough. Patient reports that the pain began at 15:00 and was rated 9/10 at its worst, but has since been reduced to 7/10. Patient also reports shortness of breath and coughing up green phlegm. Patient denies edema, nausea, or diaphoresis. Patient was diagnosed with bronchitis a month ago and is taking Flovent. - History of Current Complaint Chief Complaint: EDChestPainROMI Time Seen by Provider: 08/20/17 20:52 Hx Obtained From: Patient Onset/Duration: Started Hours Ago - 7, Still Present Time of Onset: 15:00 Timing: Constant Initial Severity: Severe Current Severity: Moderate Pain Intensity: 7 Pain Scale Used: 0-10 Numeric Chest Pain Location: Upper Sternal, Right Lateral Chest Pain Radiates: No Aggravating Factor(s): Other: - Coughing Alleviating Factor(s): Nothing Associated Signs and Symptoms: Positive: Chest Pain, Shortness of Breath, Cough. Negative: Fever, Diaphoresis, Nausea, Edema - Additional Pertinent History Primary Care Physician: [id number] - Allergy/Home Medications Allergies/Adverse Reactions: Allergies Allergy/AdvReac Type Severity Reaction Status Date / Time No Known Allergies Allergy Verified 08/09/17 20:03 PMH/Surg Hx/FS Hx/Imm Hx Endocrine/Hematology History: Denies: Hx Diabetes, Hx Thyroid Disease Cardiovascular History: Denies: Hx Hypertension, Hx Pacemaker/ICD Respiratory History: Denies: Hx Asthma, Hx Chronic Obstructive Pulmonary Disease (COPD) GI History: Reports: Hx Gall Bladder Disease - removed "a couple of years ago Denies: Hx Ulcer History: Denies: Hx Renal Disease Musculoskeletal History: Reports: Hx Scoliosis, Other Musculoskeletal History - obesity Neurological History: Denies: Hx Dementia, Hx Seizures Psychiatric History: Reports: Hx Anxiety, Hx Attention Deficit Hyperactivity Disorder, Hx Depression, Hx Post Traumatic Stress Disorder, Hx Inpatient Treatment, Hx Community Mental Health Tx, Hx Bipolar Disorder, Hx of Violent Episodes Against Others, Other Psychiatric Issues/Disorders Denies: Hx Eating Disorder, Hx Panic Disorder, Hx Schizophrenia, Hx Suicide Attempt, Hx Substance Abuse - Surgical History Surgery Procedure, Year, and Place: CHOLECYSTECTOMY. T & A Infectious Disease History: No Infectious Disease History: Denies: Hx Clostridium Difficile, Hx Hepatitis, Hx Human Immunodeficiency Virus (HIV), Hx of Known/Suspected MRSA, Hx Shingles, Hx Tuberculosis, Hx Known/ Suspected VRE, Hx Known/Suspected VRSA, History Other Infectious Disease, Traveled Outside the [place] in Last 30 Days - Family History Known Family History: Positive: Cardiac Disease, Hypertension, Diabetes - Social History Alcohol Use: Rare Alcohol Amount: once per year Hx Substance Use: No Substance Use Type: Reports: None Hx Tobacco Use: Yes Smoking Status (MU): Former Smoker Type: Cigarettes Have You Smoked in the Last Year: No Review of Systems Negative: Fever, Skin Diaphoresis Positive: Chest Pain Positive: Shortness Of Breath, Cough Negative: Nausea Negative: Edema All Other Systems Reviewed And Are Negative: Yes Physical Exam - Summary Physical Exam Summary: General: well-appearing, no pain distress Skin: warm, color reflects adequate perfusion, dry Head: normal Eyes: EOMI, BREANNA ENT: normal Neck: supple, nontender Respiratory: CTA, breath sounds present Cardiovascular: RRR Abdomen: soft, nontender Bowel: present Musculoskeletal: normal, strength/ROM intact Neurological: normal, sensory/motor intact, A&O x3 Psychological: affect/mood appropriate Triage Information Reviewed: Yes Vital Signs On Initial Exam: Initial Vitals Temp Pulse Resp BP Pulse Ox 98.3 F 77 20 154/81 96 08/20/17 20:28 08/20/17 20:28 08/20/17 20:28 08/20/17 20:28 08/20/17 20:28 Vital Signs Reviewed: Yes Diagnostics - Vital Signs Vital Signs Temp Pulse Resp BP Pulse Ox 08/20/17 20:28 98.3 F 77 20 154/81 96 - Laboratory Lab Results: Lab Results 08/20/17 08/20/17 08/20/17 Range/Units 21:15 21:15 21:15 WBC (3.5-10.8) 10^3/ul RBC (4.0-5.4) 10^6/ul Hgb (14.0-18.0) g/dl Hct (42-52) % MCV (80-94) fL MCH (27-31) pg MCHC (31-36) g/dl RDW (10.5-15) % Plt Count (150-450) 10^3/ul MPV (7.4-10.4) um3 Neut % (Auto) (38-83) % Lymph % (Auto) (25-47) % Davidson % (Auto) (1-9) % Eos % (Auto) (0-6) % Baso % (Auto) (0-2) % Absolute Neuts (auto) (1.5-7.7) 10^3/ul Absolute Lymphs (auto) (1.0-4.8) 10^3/ul Absolute Monos (auto) (0-0.8) 10^3/ul Absolute Eos (auto) (0-0.6) 10^3/ul Absolute Basos (auto) (0-0.2) 10^3/ul Absolute Nucleated RBC 10^3/ul Nucleated RBC % INR (Anticoag Therapy) 1.01 (0.77-1.02) APTT 30.4 (26.0-36.3) seconds Sodium 136 (133-145) mmol/L Potassium 3.9 (3.5-5.0) mmol/L Chloride 104 (101-111) mmol/L Carbon Dioxide 26 (22-32) mmol/L Anion Gap 6 (2-11) mmol/L BUN 12 (6-24) mg/dL Creatinine 0.72 (0.67-1.17) mg/dL Est GFR ( Amer) 155.5 (>60) Est GFR (Non-Af Amer) 120.9 (>60) BUN/Creatinine Ratio 16.7 (8-20) Glucose 102 H (70-100) mg/dL Lactic Acid (0.5-2.0) mmol/L Calcium 8.7 (8.6-10.3) mg/dL Magnesium 1.8 L (1.9-2.7) mg/dL Total Bilirubin 0.60 (0.2-1.0) mg/dL AST 19 (13-39) U/L ALT 26 (7-52) U/L Alkaline Phosphatase 43 (34-104) U/L Troponin I 0.00 (<0.04) ng/mL C-Reactive Protein 7.89 H (< 5.00) mg/L B-Natriuretic Peptide 20 ( - 100) pg/mL Total Protein 6.5 (6.4-8.9) g/dL Albumin 3.8 (3.2-5.2) g/dL Globulin 2.7 (2-4) g/dL Albumin/Globulin Ratio 1.4 (1-3) Lipase 17 (11.0-82.0) U/L TSH 2.42 (0.34-5.60) mcIU/mL 08/20/17 08/20/17 Range/Units 21:15 21:15 WBC 7.0 (3.5-10.8) 10^3/ul RBC 5.06 (4.0-5.4) 10^6/ul Hgb 14.3 (14.0-18.0) g/dl Hct 42 (42-52) % MCV 83 (80-94) fL MCH 28 (27-31) pg MCHC 34 (31-36) g/dl RDW 14 (10.5-15) % Plt Count 193 (150-450) 10^3/ul MPV 7 L (7.4-10.4) um3 Neut % (Auto) 49.5 (38-83) % Lymph % (Auto) 37.4 (25-47) % Davidson % (Auto) 11.3 H (1-9) % Eos % (Auto) 1.4 (0-6) % Baso % (Auto) 0.4 (0-2) % Absolute Neuts (auto) 3.4 (1.5-7.7) 10^3/ul Absolute Lymphs (auto) 2.6 (1.0-4.8) 10^3/ul Absolute Monos (auto) 0.8 (0-0.8) 10^3/ul Absolute Eos (auto) 0.1 (0-0.6) 10^3/ul Absolute Basos (auto) 0 (0-0.2) 10^3/ul Absolute Nucleated RBC 0 10^3/ul Nucleated RBC % 0.1 INR (Anticoag Therapy) (0.77-1.02) APTT (26.0-36.3) seconds Sodium (133-145) mmol/L Potassium (3.5-5.0) mmol/L Chloride (101-111) mmol/L Carbon Dioxide (22-32) mmol/L Anion Gap (2-11) mmol/L BUN (6-24) mg/dL Creatinine (0.67-1.17) mg/dL Est GFR ( Amer) (>60) Est GFR (Non-Af Amer) (>60) BUN/Creatinine Ratio (8-20) Glucose (70-100) mg/dL Lactic Acid 0.9 (0.5-2.0) mmol/L Calcium (8.6-10.3) mg/dL Magnesium (1.9-2.7) mg/dL Total Bilirubin (0.2-1.0) mg/dL AST (13-39) U/L ALT (7-52) U/L Alkaline Phosphatase (34-104) U/L Troponin I (<0.04) ng/mL C-Reactive Protein (< 5.00) mg/L B-Natriuretic Peptide ( - 100) pg/mL Total Protein (6.4-8.9) g/dL Albumin (3.2-5.2) g/dL Globulin (2-4) g/dL Albumin/Globulin Ratio (1-3) Lipase (11.0-82.0) U/L TSH (0.34-5.60) mcIU/mL Result Diagrams: 08/20/17 21:15 08/20/17 21:15 Lab Statement: Any lab studies that have been ordered have been reviewed, and results considered in the medical decision making process. - Radiology CXR Xray Interpretation: Positive (See Comments) - UNDERINFLATION, SMALL RIGHT BASILAR INFILTRATE. Dr. Colmenares has reviewed this report. Radiology Interpretation Completed By: Radiologist - EKG 20:45 Cardiac Rate: NL - at 69 BPM EKG Rhythm: Sinus Rhythm ST Segment: Normal Ectopy: None Chest Pain Course/Dx - Course Course Of Treatment: Medications reviewed. BP noted and patient urged to follow up with primary care. PATIENT WAS ON AMOX AND ALBUTEROL 07/27/17. ON FLOVENT SINCE 08/09/17. NO REPEAT TROPONIN DUE TO CHEST PAIN OCCURS WITH COUGH AND WAS AT 1500 SO, THE SINGLE TROPONIN WAS DONE 6 HOURS AFTER REPORTED CHEST PAIN. F/U PMD; RETURN IF WORSE. - Diagnoses Provider Diagnoses: Elevated BP without diagnosis of hypertension, Pneumonia Discharge - Discharge Plan Condition: Stable Disposition: HOME Prescriptions: Azithromycin TAB* [Zithromax TAB (Z-OUMAR) 250 mg #6 tabs] 250 mg PO DAILY #4 tab GuaiFENesin DM* [Robitussin DM*] 10 ml PO Q4H PRN #180 ml PRN Reason: Cough Patient Education Materials: Community Acquired Pneumonia (ED) Referrals: Karla Patterson MD [Primary Care Provider] - Additional Instructions: FOLLOW UP WITH YOUR DOCTOR. RETURN TO THE EMERGENCY DEPARTMENT FOR ANY WORSENING OF YOUR CONDITION OR QUESTIONS OR CONCERNS. The documentation as recorded by the Gregg rincon Thomas accurately reflects the service I personally performed and the decisions made by me, Ashwin Colmenares MD.
[2017-08-20 23:00] VITALS: BP 130/73
== END 2017-08-20 23:00 | disposition home or self-care (01) ==
LOC: ED 20:19
DX: J18.9 Pneumonia, unspecified organism (principal); R03.0 Elevated blood-pressure reading, without diagnosis of hypertension; M41.9 Scoliosis, unspecified; E66.9 Obesity, unspecified; F41.9 Anxiety disorder, unspecified; F90.9 Attention-deficit hyperactivity disorder, unspecified type; F32.9 Major depressive disorder, single episode, unspecified; F43.10 Post-traumatic stress disorder, unspecified; Z90.49 Acquired absence of other specified parts of digestive tract; Z87.891 Personal history of nicotine dependence
CPT/HCPCS: 36415; 71045; 80053; 83605; 83690; 83735; 83880; 84443; 84484; 85025; 85610; 85730; 86140; 93005; 99283; A9270-GY

== ENCOUNTER 2017-08-26 13:55 | Emergency (ER) | payer MEDICARE, MEDICAID ==
[2017-08-26] MEDS ORDERED: Albuterol 2.5 MG/3 ML NEB.SOL* (0.083%) INH ONE (17:08)
[2017-08-26 17:32] LABS: ABS Basophils 0 10^3/ul (0-0.2); ABS Eosinophils 0.1 10^3/ul (0-0.6); ABS Lymphocytes 2.4 10^3/ul (1.0-4.8); ABS Monocytes 0.8 10^3/ul (0-0.8); ABS Neutrophils 3.6 10^3/ul (1.5-7.7); ABS Nucleated RBC 0 10^3/ul; Eosinophil % 1.3 % (0-6); Hematocrit 45 % (42-52); Hemoglobin 15.4 g/dl (14.0-18.0); Lymphocyte % 34.2 % (25-47); Mean Corpuscular HGB Conc 35 g/dl (31-36); Mean Corpuscular Hemoglobin 29 pg (27-31); Mean Corpuscular Volume 83 fL (80-94); Mean Platelet Volume 8 um3 (7.4-10.4); Nucleated Red Blood Cells % 0.2; Platelet Count 227 10^3/ul (150-450); Red Blood Count 5.38 10^6/ul (4.0-5.4); Red Cell Distribution Width 14 % (10.5-15); White Blood Count 6.9 10^3/ul (3.5-10.8)
[2017-08-26 17:44] LABS: EGFR Non-African American 101.2 (>60)
--- NOTE | 2017-08-26 17:54 | RAD ---
HISTORY: Follow-up pneumonia COMPARISONS: August 20, 2017 VIEWS: 4: Frontal dual-energy and lateral views of the chest. FINDINGS: CARDIOMEDIASTINAL SILHOUETTE: The cardiomediastinal silhouette is normal. SHEREE: The sheree are normal. PLEURA: The costophrenic angles are sharp. No pleural abnormalities are noted. LUNG PARENCHYMA: The lung volumes are low. The airspace disease noted on the previous examination is no longer evident.. ABDOMEN: The upper abdomen is clear. There is no subphrenic gas. BONES AND SOFT TISSUES: No bone or soft tissue abnormalities are noted. OTHER: None. IMPRESSION: 1. LOW LUNG VOLUMES. 2. IMPROVED AERATION OF THE RIGHT LUNG BASE
[2017-08-26 19:15] VITALS: BP 142/62
--- NOTE | 2017-08-26 19:48 | ED ---
Blu Gonzalez Stephanie, scribed for Bryan Lofton MD on 08/26/17 at 1750 . HPI Chest Pain - HPI Summary HPI Summary: The pt is a 42 y/o M presenting to the ED with c/o CP that began today. Symptoms include chest congestion and a productive cough (green sputum). The pt reports being sick with PNE for the last month. The pt was treated for PNE 1 week ago. The pt has completed abx. - History of Current Complaint Chief Complaint: EDGeneral Time Seen by Provider: 08/26/17 17:48 Hx Obtained From: Patient Onset/Duration: Started Weeks Ago - 4, Still Present Timing: Constant Current Severity: None Pain Intensity: 0 Pain Scale Used: 0-10 Numeric Character: Cough, Productive - green sputum, Tightness Aggravating Factor(s): Nothing Alleviating Factor(s): Nothing Associated Signs and Symptoms: Positive: Chest Pain - tightness, Productive Cough - Additional Pertinent History Primary Care Physician: KARLA - Allergy/Home Medications Allergies/Adverse Reactions: Allergies Allergy/AdvReac Type Severity Reaction Status Date / Time No Known Allergies Allergy Verified 08/09/17 20:03 PMH/Surg Hx/FS Hx/Imm Hx Endocrine/Hematology History: Denies: Hx Diabetes, Hx Thyroid Disease Cardiovascular History: Denies: Hx Hypertension, Hx Pacemaker/ICD Respiratory History: Denies: Hx Asthma, Hx Chronic Obstructive Pulmonary Disease (COPD) GI History: Reports: Hx Gall Bladder Disease - removed "a couple of years ago Denies: Hx Ulcer History: Denies: Hx Renal Disease Musculoskeletal History: Reports: Hx Scoliosis, Other Musculoskeletal History - obesity Neurological History: Denies: Hx Dementia, Hx Seizures Psychiatric History: Reports: Hx Anxiety, Hx Attention Deficit Hyperactivity Disorder, Hx Depression, Hx Post Traumatic Stress Disorder, Hx Inpatient Treatment, Hx Community Mental Health Tx, Hx Bipolar Disorder, Hx of Violent Episodes Against Others, Other Psychiatric Issues/Disorders Denies: Hx Eating Disorder, Hx Panic Disorder, Hx Schizophrenia, Hx Suicide Attempt, Hx Substance Abuse - Surgical History Surgery Procedure, Year, and Place: CHOLECYSTECTOMY. T & A Infectious Disease History: No Infectious Disease History: Denies: Hx Clostridium Difficile, Hx Hepatitis, Hx Human Immunodeficiency Virus (HIV), Hx of Known/Suspected MRSA, Hx Shingles, Hx Tuberculosis, Hx Known/ Suspected VRE, Hx Known/Suspected VRSA, History Other Infectious Disease, Traveled Outside the [place] in Last 30 Days - Family History Known Family History: Positive: Cardiac Disease, Hypertension, Diabetes - Social History Occupation: Unemployed Lives: With Family Alcohol Use: Rare Alcohol Amount: once per year Hx Substance Use: No Substance Use Type: Reports: None Hx Tobacco Use: Yes Smoking Status (MU): Former Smoker Type: Cigarettes Have You Smoked in the Last Year: No Review of Systems Negative: Fever Positive: Chest Pain Positive: Cough - productive All Other Systems Reviewed And Are Negative: Yes Physical Exam - Summary Physical Exam Summary: Appearance: Well-appearing, Well-nourished Skin: Warm, Dry, No rash Eyes: Normal, PERRL, EOMI, sclera anicteric ENT: Normal Neck: Supple, nontender Respiratory: Clear to auscultation Cardiovascular: S1, S2, no murmur, no rub, no gallop, slight tachypnea Abdomen: Soft, nontender, no organomegaly Bowel sounds: Present Musculoskeletal: Normal, Strength/ROM Intact, no edema, pulses symmetrical Neurological: Normal, A&Ox3, cranial nerves II-XII WNL, follows commands, gait not tested, sensation intact to pin and light touch Psychiatric: affect normal, behavior appropriate, dressed appropriately, judgment intact Triage Information Reviewed: Yes Vital Signs On Initial Exam: Initial Vitals Temp Pulse Resp BP Pulse Ox 98 F 80 20 163/88 96 08/26/17 13:58 08/26/17 13:58 08/26/17 13:58 08/26/17 13:58 08/26/17 13:58 Vital Signs Reviewed: Yes Diagnostics - Vital Signs Vital Signs Temp Pulse Resp BP Pulse Ox 08/26/17 16:14 99.1 F 83 20 145/67 97 08/26/17 13:58 98 F 80 20 163/88 96 - Laboratory Lab Results: Lab Results 08/26/17 08/26/17 Range/Units 17:15 17:15 WBC 6.9 (3.5-10.8) 10^3/ul RBC 5.38 (4.0-5.4) 10^6/ul Hgb 15.4 (14.0-18.0) g/dl Hct 45 (42-52) % MCV 83 (80-94) fL MCH 29 (27-31) pg MCHC 35 (31-36) g/dl RDW 14 (10.5-15) % Plt Count 227 (150-450) 10^3/ul MPV 8 (7.4-10.4) um3 Neut % (Auto) 51.9 (38-83) % Lymph % (Auto) 34.2 (25-47) % Atlantic % (Auto) 12.1 H (1-9) % Eos % (Auto) 1.3 (0-6) % Baso % (Auto) 0.5 (0-2) % Absolute Neuts (auto) 3.6 (1.5-7.7) 10^3/ul Absolute Lymphs (auto) 2.4 (1.0-4.8) 10^3/ul Absolute Monos (auto) 0.8 (0-0.8) 10^3/ul Absolute Eos (auto) 0.1 (0-0.6) 10^3/ul Absolute Basos (auto) 0 (0-0.2) 10^3/ul Absolute Nucleated RBC 0 10^3/ul Nucleated RBC % 0.2 Sodium 137 (133-145) mmol/L Potassium 4.0 (3.5-5.0) mmol/L Chloride 103 (101-111) mmol/L Carbon Dioxide 29 (22-32) mmol/L Anion Gap 5 (2-11) mmol/L BUN 10 (6-24) mg/dL Creatinine 0.84 (0.67-1.17) mg/dL Est GFR ( Amer) 130.2 (>60) Est GFR (Non-Af Amer) 101.2 (>60) BUN/Creatinine Ratio 11.9 (8-20) Glucose 88 (70-100) mg/dL Calcium 9.1 (8.6-10.3) mg/dL Total Bilirubin 0.50 (0.2-1.0) mg/dL AST 20 (13-39) U/L ALT 32 (7-52) U/L Alkaline Phosphatase 44 (34-104) U/L Total Protein 7.2 (6.4-8.9) g/dL Albumin 4.0 (3.2-5.2) g/dL Globulin 3.2 (2-4) g/dL Albumin/Globulin Ratio 1.3 (1-3) Result Diagrams: 02/06/18 17:15 08/26/17 17:15 Lab Statement: Any lab studies that have been ordered have been reviewed, and results considered in the medical decision making process. - Radiology CXR Xray Interpretation: No Acute Changes Radiology Interpretation Completed By: Radiologist - 1. LOW LUNG VOLUMES. 2. IMPROVED AERATION OF THE RIGHT LUNG BASE Re-Evaluation - Re-Evaluation First Eval Re-Evaluation Time: 18:20 Change: Unchanged - Pt has persistent symptoms. ED physician discussed Xray results with the pt. Chest Pain Course/Dx - Course Course Of Treatment: The pt received albuterol. ED physician discussed X-Ray results with the pt. Due to persistent symptoms, the pt will be discharged with Levaquin. - Diagnoses Provider Diagnoses: Community acquired pneumonia Discharge - Discharge Plan Condition: Good Disposition: HOME Prescriptions: Levofloxacin TAB* [Levaquin TAB*] 500 mg PO DAILY 5 Days #5 tab Patient Education Materials: Community Acquired Pneumonia (ED) Referrals: Karla Patterson MD [Primary Care Provider] - The documentation as recorded by the Blu rincon Stephanie accurately reflects the service I personally performed and the decisions made by , Bryan Lofton MD.
== END 2017-08-26 19:12 | disposition home or self-care (01) ==
LOC: ED 13:55
DX: J18.9 Pneumonia, unspecified organism (principal); Z87.891 Personal history of nicotine dependence
CPT/HCPCS: 36415; 71046; 80053; 85025; 94640; 99283

== ENCOUNTER 2018-07-30 08:17 | Emergency (ER) | payer MEDICARE, MEDICAID ==
--- NOTE | 2018-07-30 09:07 | ED ---
Complex/Multi-Sys Presentation - HPI Summary HPI Summary: Patient is a 43 y/o M presenting to ED with sore throat, rhinorrhea, congestion , FLANAGAN, lower back pain, N/V/D, and cough productive of green, bloody sputum. Back pain is described as chronic with an exacerbation in the past few days, he states FLANAGAN onset 4 days ago. N/V/D have been present for the past few days. He claims several episodes of vomiting daily, reports 3-4 episodes of diarrhea daily. This morning, he states that he had a cough productive of green, bloody sputum. He denies ear ache, chest pain, numbness/tingling in legs. No previous injuries or trauma. No Hx of diabetes, COPD, asthma. Nine year old daughter of patient had been sick recently, notes that she has since gotten better. Patient has been taking ibuprofen for pain. No Hx of positive PPD. He had flu shot this year. On triage, pain is rated 8/10, nothing is noted to aggravate/alleviate Sx. Home medications, allergies, and nurse's note reviewed. - History Of Current Complaint Chief Complaint: EDThroatPain Time Seen by Provider: 07/30/18 08:22 Hx Obtained From: Patient Onset/Duration: Lasting Hours - cough productive of green, bloody sputum, Lasting Days - sore throat, rhinorrhea, congestion, FLANAGAN, lower back pain, N/V/D, Still Present Timing: Constant, Hours - cough productive of green, bloody sputum, Days - sore throat, rhinorrhea, congestion, FLANAGAN, lower back pain, N/V/D Severity Currently: Severe - 8/10 Location: Pain At: - lower back, head Character: Typical Headache Aggravating Factor(s): nothing Alleviating Factor(s): nothing Associated Signs And Symptoms: Positive: Headache, Cough - PRODUCITVE OF GREEN BLOODY SPUTUM, Nausea, Vomiting, Diarrhea, Back Pain - LOWER, Other - POSITIVE - SORE THROAT, RHINORRHEA, CONGESTION; NEGATIVE EAR ACHE, NUMBNESS/TINGLING IN LEGS, NO PREVIOUS INJURIES/TRAUMA. Negative: Chest Pain - Allergies/Home Medications Allergies/Adverse Reactions: Allergies Allergy/AdvReac Type Severity Reaction Status Date / Time No Known Allergies Allergy Verified 07/30/18 08:22 PMH/Surg Hx/FS Hx/Imm Hx Endocrine/Hematology History: Denies: Hx Diabetes, Hx Thyroid Disease Cardiovascular History: Denies: Hx Hypertension, Hx Pacemaker/ICD Respiratory History: Denies: Hx Asthma, Hx Chronic Obstructive Pulmonary Disease (COPD) GI History: Reports: Hx Gall Bladder Disease - removed "a couple of years ago Denies: Hx Ulcer History: Reports: Hx Kidney Stones Denies: Hx Renal Disease Musculoskeletal History: Reports: Hx Back Problems, Hx Scoliosis, Other Musculoskeletal History - obesity Neurological History: Denies: Hx Dementia, Hx Seizures Psychiatric History: Reports: Hx Anxiety, Hx Attention Deficit Hyperactivity Disorder, Hx Depression, Hx Post Traumatic Stress Disorder, Hx Inpatient Treatment, Hx Community Mental Health Tx, Hx Bipolar Disorder, Hx of Violent Episodes Against Others, Other Psychiatric Issues/Disorders Denies: Hx Eating Disorder, Hx Panic Disorder, Hx Schizophrenia, Hx Suicide Attempt, Hx Substance Abuse - Surgical History Surgery Procedure, Year, and Place: CHOLECYSTECTOMY. T & A Infectious Disease History: No Infectious Disease History: Denies: Hx Clostridium Difficile, Hx Hepatitis, Hx Human Immunodeficiency Virus (HIV), Hx of Known/Suspected MRSA, Hx Shingles, Hx Tuberculosis, Hx Known/ Suspected VRE, Hx Known/Suspected VRSA, History Other Infectious Disease, Traveled Outside the [place] in Last 30 Days - Family History Known Family History: Positive: Cardiac Disease, Hypertension, Diabetes - Social History Alcohol Use: Rare Alcohol Amount: once per year Hx Substance Use: No Substance Use Type: Reports: None Hx Tobacco Use: Yes Smoking Status (MU): Former Smoker Type: Cigarettes Have You Smoked in the Last Year: No Review of Systems Positive: Other - NEGATIVE - PREVIOUS INJURIES OR TRAUMA Positive: Sore Throat, Nasal Discharge - RHINORRHEA , Other - POSITIVE - CONGESTION . Negative: Ear Ache Negative: Chest Pain Positive: Cough - PRODUCTIVE OF GREEN, BLOODY SPUTUM Positive: Vomiting, Diarrhea, Nausea Positive: Other - POSITIVE - LOWER BACK PAIN Positive: Headache. Negative: Numbness All Other Systems Reviewed And Are Negative: Yes Physical Exam - Summary Physical Exam Summary: Appearance: Well appearing, no pain distress, flat affect Skin: warm, dry, reflects adequate perfusion Head/face: normal Eyes: EOMI, BREANNA ENT: mucous membranes moist; mild redness and exudate at right tonsils, minimal clear nasal discharge Neck: supple, non-tender Respiratory: CTA, breath sounds present Cardiovascular: RRR, pulses symmetrical Abdomen: non-tender, soft Bowel Sounds: present Musculoskeletal: normal, strength/ROM intact Neuro: normal, sensory motor intact, A&Ox3 Triage Information Reviewed: Yes Vital Signs On Initial Exam: Initial Vitals Temp Pulse Resp BP Pulse Ox 96.1 F 59 17 124/79 97 07/30/18 08:19 07/30/18 08:19 07/30/18 08:19 07/30/18 08:19 07/30/18 08:19 Vital Signs Reviewed: Yes Diagnostics - Vital Signs Vital Signs Temp Pulse Resp BP Pulse Ox 07/30/18 08:19 96.1 F 59 17 124/79 97 - Laboratory Lab Statement: Any lab studies that have been ordered have been reviewed, and results considered in the medical decision making process. Complex Multi-Symp Course/Dx Course Of Treatment: Nurse's notes reviewed. Patient presents with mild flulike symptoms over the course of almost 1 week. Rapid strep negative. Mild symptoms at present. Lungs clear. Patient comfortable and afebrile. Treat symptomatically. - Diagnoses Differential Diagnoses/HQI/PQRI: Other - Influenza, URI, pharyngitis, otitis, pneumonia Provider Diagnoses: Viral syndrome, Back pain Discharge - Sign-Out/Discharge Documenting (check all that apply): Patient Departure - discharge - Discharge Plan Condition: Improved Disposition: HOME Prescriptions: Benzonatate CAP* [Tessalon 100 MG CAP*] 100 mg PO TID PRN #20 cap PRN Reason: Cough Dexamethasone TAB* [Decadron TAB*] 8 mg PO DAILY #8 tab guaiFENesin [Mucinex] 600 mg PO BID #14 tab.er.12h Patient Education Materials: Viral Syndrome (ED) Referrals: Karla Patterson MD [Primary Care Provider] - Additional Instructions: Stay well-hydrated. Vitamin C may help. Call your doctor today to schedule follow-up. Return with high fever, unable to keep down fluids, worsening cough or other concerns. - Billing Disposition and Condition Condition: IMPROVED Disposition: Home - Attestation Statements Document Initiated by Scribe: Yes Documenting Scribe: JACQUES KINGSLEY Provider For Whom Scribe is Documenting (Include Credential): CHRIS PULIDO MD Scribe Attestation: JACQUES Gonzalez , scribed for CHRIS PULIDO MD on 07/30/18 at 1042. Scribe Documentation Reviewed: Yes Provider Attestation: The documentation as recorded by the scribe, JACQUES KINGSLEY accurately reflects the service I personally performed and the decisions made by me, CHRIS PULIDO MD Status of [place] Document: Viewed
[2018-07-30 10:18] VITALS: BP 110/49
== END 2018-07-30 10:18 | disposition home or self-care (01) ==
LOC: ED 08:17
DX: B34.9 Viral infection, unspecified (principal); M54.5 Low back pain; J02.9 Acute pharyngitis, unspecified; R51 Headache; J34.89 Other specified disorders of nose and nasal sinuses; Z87.891 Personal history of nicotine dependence; R11.2 Nausea with vomiting, unspecified; R19.7 Diarrhea, unspecified
CPT/HCPCS: 87651; 99282

== ENCOUNTER 2019-01-07 12:04 | Emergency (ER) | payer MEDICARE, MEDICAID ==
--- NOTE | 2019-01-07 13:17 | ED ---
Skin Complaint - HPI Summary HPI Summary: Patient is a 43-year-old male presenting to the ED with his with a chief complaint of left calf abscess. He states he is unsure how this area developed. He is unsure if it is a but bite or an ingrown hair. It developed approximately 2 days ago and was able to express some purulent drainage from this area early this morning. This was concerning to them so they decided to come to the ED for further evaluation. The area is approximately 2 cm in diameter and is superficial. Patient denies any fevers, sweats, chills. He has no history of MRSA or other abscess. - History of Current Complaint Chief Complaint: EDRashSkinAbscess Time Seen by Provider: 01/07/19 12:17 Stated Complaint: LEFT LEG PAIN Hx Obtained From: Patient Onset/Duration: Started Hours Ago Skin Exposure Onset/Duration: Hours Ago Timing: Constant Onset Severity: Mild Current Severity: Mild Pain Intensity: 8 Pain Scale Used: 0-10 Numeric Skin Location: Other: - leg (calf) Character: Raised, Painful Aggravating Symptom(s): Nothing Alleviating Symptom(s): Nothing Associated Signs & Symptoms: Negative - Additional Pertinent History Primary Care Physician: KARLA - Allergy/Home Medications Allergies/Adverse Reactions: Allergies Allergy/AdvReac Type Severity Reaction Status Date / Time No Known Allergies Allergy Verified 01/07/19 12:15 PMH/Surg Hx/FS Hx/Imm Hx Previously Healthy: Yes Endocrine/Hematology History: Denies: Hx Diabetes, Hx Thyroid Disease Cardiovascular History: Denies: Hx Hypertension, Hx Pacemaker/ICD Respiratory History: Denies: Hx Asthma, Hx Chronic Obstructive Pulmonary Disease (COPD) GI History: Reports: Hx Gall Bladder Disease - removed "a couple of years ago Denies: Hx Ulcer History: Reports: Hx Kidney Stones Denies: Hx Renal Disease Musculoskeletal History: Reports: Hx Back Problems, Hx Scoliosis, Other Musculoskeletal History - obesity Neurological History: Denies: Hx Dementia, Hx Seizures Psychiatric History: Reports: Hx Anxiety, Hx Attention Deficit Hyperactivity Disorder, Hx Depression, Hx Post Traumatic Stress Disorder, Hx Inpatient Treatment, Hx Community Mental Health Tx, Hx Bipolar Disorder, Hx of Violent Episodes Against Others, Other Psychiatric Issues/Disorders Denies: Hx Eating Disorder, Hx Panic Disorder, Hx Schizophrenia, Hx Suicide Attempt, Hx Substance Abuse - Surgical History Surgery Procedure, Year, and Place: CHOLECYSTECTOMY. T & A - Immunization History Hx Pertussis Vaccination: No Immunizations Up to Date: Yes Infectious Disease History: No Infectious Disease History: Denies: Hx Clostridium Difficile, Hx Hepatitis, Hx Human Immunodeficiency Virus (HIV), Hx of Known/Suspected MRSA, Hx Shingles, Hx Tuberculosis, Hx Known/ Suspected VRE, Hx Known/Suspected VRSA, History Other Infectious Disease, Traveled Outside the [place] in Last 30 Days - Family History Known Family History: Positive: Cardiac Disease, Hypertension, Diabetes - Social History Occupation: Employed Full-time Lives: With Family Alcohol Use: Rare Alcohol Amount: once per year Hx Substance Use: No Substance Use Type: Reports: None Hx Tobacco Use: Yes Smoking Status (MU): Former Smoker Type: Cigarettes Have You Smoked in the Last Year: No Review of Systems Constitutional: Negative Negative: Fever, Chills, Fatigue, Skin Diaphoresis Negative: Palpitations, Chest Pain Negative: Shortness Of Breath, Cough Genitourinary: Negative Positive: no symptoms reported, see HPI Positive: Other - 2cm abcess to the L calf Neurological: Negative All Other Systems Reviewed And Are Negative: Yes Physical Exam Triage Information Reviewed: Yes Vital Signs On Initial Exam: Initial Vitals Temp Pulse Resp BP Pulse Ox 98.3 F 86 16 159/91 97 01/07/19 12:13 01/07/19 12:13 01/07/19 12:13 01/07/19 12:13 01/07/19 12:13 Vital Signs Reviewed: Yes Appearance: Positive: Well-Appearing, Well-Nourished Skin: Positive: Skin Color Reflects Adequate Perfusion, Other - left calf abscess - 2cm non fluctuant, no streaking. Eyes: Positive: EOMI, BREANNA, Conjunctiva Clear Neck: Positive: Supple Respiratory/Lung Sounds: Positive: Clear to Auscultation, Breath Sounds Present Cardiovascular: Positive: RRR, Pulses are Symmetrical in both Upper and Lower Extremities Musculoskeletal: Positive: Strength/ROM Intact Neurological: Positive: Speech Normal Psychiatric: Positive: Affect/Mood Appropriate AVPU Assessment: Alert Diagnostics - Vital Signs Vital Signs Temp Pulse Resp BP Pulse Ox 01/07/19 12:13 98.3 F 86 16 159/91 97 - Laboratory Lab Statement: Any lab studies that have been ordered have been reviewed, and results considered in the medical decision making process. Course/Dx - Course Course Of Treatment: Patient's evaluated for a 2 cm in diameter abscess to left calf. No evidence of DVT. No fevers, sweats, chills. Small amount of erythema which is slightly raised, however there is no fluctuant area. No streaking from the area. VS stable. Discussed treatment options with the patient. This appears to be a very small superficial abscess which we may not be able to express any drainage from the area. Patient states he would like to defer at this time. Patient is requesting antibiotics only. Bactrim twice daily 5 days given to patient and he discharge return precautions. - Differential Diagnoses - Skin Complaint Differential Diagnoses: Other - but bite - Diagnoses Provider Diagnoses: Abscess Discharge - Sign-Out/Discharge Documenting (check all that apply): Patient Departure Patient Received Moderate/Deep Sedation with Procedure: No - Discharge Plan Condition: Stable Disposition: HOME Prescriptions: Sulfamethox/Trimethoprim DS* [Bactrim DS 800/160 TAB*] 1 tab PO BID #10 tab Patient Education Materials: Abscess (ED) Referrals: Karla Patterson MD [Primary Care Provider] - Additional Instructions: As discussed, at this time I do not believe this needs to be drained However this may come to a head injury may express it at home if you fell comfortable If anything gets worse including fevers, sweats, chills or the redness begins to worsen and spread, return to the ED Warm compresses to the area Bactrim twice daily 5 days - Billing Disposition and Condition Condition: STABLE Disposition: Home
[2019-01-07 13:19] VITALS: BP 104/56
== END 2019-01-07 13:18 | disposition home or self-care (01) ==
LOC: ED 12:04
DX: L02.416 Cutaneous abscess of left lower limb (principal); Z87.891 Personal history of nicotine dependence
CPT/HCPCS: 99282

== ENCOUNTER 2023-04-21 03:38 | Observation (INO) ==
[2023-04-21 04:18] LABS: ABS Basophils 0.1 10^3/uL (0.0-0.1); ABS Eosinophils 0.2 10^3/uL (0.0-0.5); ABS Lymphocytes 3.2 10^3/uL (1.0-4.8); ABS Monocytes 0.9 10^3/uL (0.0-1.1); ABS Neutrophils 6.5 10^3/uL (1.5-7.6); ABS Nucleated RBC 0.02 10^3/ul; Eosinophil % 2.2 %; Hematocrit 41.9 % (38-53); Hemoglobin 14.6 g/dL (13.2-16.3); Lymphocyte % 29.2 %; Mean Corpuscular Hemoglobin 29.9 pg (27-33); Mean Corpuscular Hgb Conc 34.8 g/dL (31-36); Mean Platelet Volume 7.3 fL (7.5-11.2); Nucleated Red Blood Cells % 0.2 /100 WBC (0.0-0.4); Platelet Count 290 10^3/uL (150-450); Red Blood Count 4.87 10^6/uL (4.06-5.63); White Blood Count 10.8 10^3/uL (3.6-10.2)
[2023-04-21 04:26] LABS: INR 1.02 (0.83-1.13)
[2023-04-21 04:43] LABS: High Sens Troponin Baseline 14 pg/mL (<20)
[2023-04-21 05:06] LABS: Albumin 4.2 g/dL (3.2-5.2); CO2 Carbon Dioxide 26 mmol/L (22-32); Calcium 9.7 mg/dL (8.6-10.3); Chloride 105 mmol/L (101-111); Sodium 143 mmol/L (135-145)
[2023-04-21 05:12] LABS: ALT 22 U/L (7-52); Albumin/Globulin Ratio 1.4 (1-3); Alkaline Phosphatase 49 U/L (35-149); Blood Urea Nitrogen 15 mg/dL (6-24); Globulin 3.1 g/dL (2-4); Glucose 110 mg/dL (70-100); Total Protein 7.3 g/dL (6.4-8.9); eGFR CKD-EPI 110.5 (>60)
[2023-04-21 05:13] LABS: Anion Gap 12 mmol/L (2-16)
[2023-04-21 06:36] LABS: Magnesium 1.9 mg/dL (1.9-2.7); Potassium Redraw 4.2 mmol/L (3.5-5.0)
[2023-04-21 13:17] LABS: Prolactin 9.4 ng/mL (1.0-20.0)
[2023-04-21 17:42] LABS: C Reactive Protein 10.24 mg/L (<8.01)
[2023-04-21] MEDS: Enoxaparin 40 MG/0.4 ML SYR SUBCUT SCH (19:39)
[2023-04-21] MEDS ORDERED: hydrALAZINE 20 mg/ml 1 ML Vial IV IV SLOW PU ONE (20:48)
[2023-04-21] MEDS ORDERED: Lurasidone 120 mg TAB PO SCH (21:00)
[2023-04-21] MEDS ORDERED: Al Hydrox/Mg Hydrox/Simet LIQ 30 ML UDC PO PRN (21:38)
[2023-04-22] MEDS ORDERED: Ondansetron 4 mg VIAL 2 MG/ML 2 ml VIAL IV PRN (03:24)
[2023-04-22] MEDS ORDERED: Acetaminophen IV 1 GM/100ML 1,000 MG/100 ML BAG IV PRN (03:25)
[2023-04-22 04:06] LABS: ABS Eosinophils 0.1 10^3/uL (0.0-0.5); ABS Lymphocytes 2.3 10^3/uL (1.0-4.8); ABS Monocytes 0.7 10^3/uL (0.0-1.1); ABS Neutrophils 4.3 10^3/uL (1.5-7.6); Eosinophil % 1.8 %; Hematocrit 37.2 % (38-53); Lymphocyte % 30.3 %; Mean Corpuscular Hemoglobin 29.8 pg (27-33); Mean Corpuscular Volume 84.9 fL (80-97); Mean Platelet Volume 7.1 fL (7.5-11.2); Platelet Count 235 10^3/uL (150-450); Red Blood Count 4.38 10^6/uL (4.06-5.63); Red Cell Distribution Width 13.8 % (12-17); White Blood Count 7.5 10^3/uL (3.6-10.2)
[2023-04-22 04:23] LABS: Calcium 8.9 mg/dL (8.6-10.3); Creatinine, Serum 0.77 mg/dL (0.67-1.17); Magnesium 1.8 mg/dL (1.9-2.7); Potassium 3.6 mmol/L (3.5-5.0); eGFR CKD-EPI 111.8 (>60)
[2023-04-22] MEDS ORDERED: Magnesium Sulfate 2 gm BAG 2 GM/50 ML BAG IVPB ONE (07:16)
[2023-04-22] MEDS ORDERED: Potassium Chlor 20 meq TAB.ER PO ONE (07:17)
[2023-04-22 15:31] VITALS: BP 122/63
[2023-04-22] MEDS: Enoxaparin 40 MG/0.4 ML SYR SUBCUT SCH (17:26)
== END 2023-04-22 18:09 | disposition short-term general hospital (02) ==
LOC: ED 03:38 → EDHOLD 15:33 → INTOOBSV 15:33 → ICU 16:01
PROVIDERS: ADMIT Student in an Organized Health Care Education/Training Program; ATTEND Student in an Organized Health Care Education/Training Program